=== PATIENT | male | born 1950 | race Caucasian/White ===

== ENCOUNTER 2017-06-20 19:49 | Observation (INO) | payer MEDICARE ==
[~2017-06-20] VITALS: Ht 177.8 cm; Wt 95.0 kg
[~2017-06-20 19:49] MED LIST: CIPR-231 PO; CLAR10T PO; DILT240T6 PO; METR500T PO; OXYC1TAB24 PO; PRI20 PO; TAM4 PO
[2017-06-20 20:22] VITALS: BP 145/81; PULSE 60; RESP 16; O2SAT 97
[2017-06-20 20:51] LABS: BASOPHILS % (AUTO) 0.3 % (0-3); EOSINOPHILS % (AUTO) 1.8 % (0-5); MONOCYTES % (AUTO) 8.8 % (4-12); Mean Corpuscular Hemoglobin 29.5 pg (27.0-35.0); Mean Corpuscular Volume 90.5 fL (81-100); NEUTROPHILS % (AUTO) 68.4 % (40-74); Platelet Count 164 bil/L (150-400)
[2017-06-20 21:21] LABS: Magnesium 1.8 mg/dL (1.6-2.6)
[2017-06-20 21:43] LABS: APPEARANCE,URINE CLEAR (CLEAR,HAZY); COLOR,URINE YELLOW (YELLOW); OCCULT BLOOD,URINE TRACE (NEGATIVE)
[2017-06-20 21:44] LABS: UROBILINOGEN,URINE NORMAL (NORMAL)
--- NOTE | 2017-06-20 22:38 | ED.REPORT ---
HPI-Abd Pain M 40 and Over Date of Service Jun 20, 2017 ED Provider: Javon Miller DO Pt is a 67 year old male with a history of diverticulitis, A-fib on Warfarin and Diltiazem, GERD, and type II DM who presents to the ED complaining of left- sided abdominal pain onset this morning. He c/o associated diarrhea. He denies any other symptoms. The pt presented to with his symptoms and he was referred to the ED for further evaluation. Nursing Notes Stated Complaint: ABDOMINAL PAIN/SENT FROM URGENT CARE Chief Complaint: Male Abdominal Pain Nursing Notes Reviewed: Yes Allergies: Coded Allergies: Penicillins (Verified Allergy, Unknown, 02/11/14) Scheduled Ciprofloxacin (Cipro) 500 Mg Tablet 500 MG PO BID Diltiazem (Diltiazem) 120 Mg Tablet 240 MG PO DAILY Loratadine (Loratadine) 10 Mg Capsule 10 MG PO DAILY Metronidazole (Flagyl) 500 Mg Tablet 500 MG PO Q8H Omeprazole (Omeprazole) 20 Mg Capsule.dr 20 MG PO DAILY Tamsulosin (Flomax) 0.4 Mg Capsule 0.4 MG PO HS Warfarin Sodium (Coumadin) 5 Mg Tablet 5 MG PO DAILY@17 Scheduled PRN oxyCODONE-Acetaminophen 5-325 mg (oxyCODONE-Acetaminophen 5-325 mg) 1 Each Tablet 1-2 TAB PO Q6H PRN PRN For Pain General Time Seen by MD: 22:29 Chief Complaint Abdominal pain Hx Obtained From: Patient Arrived By: Walk-in Sudden in Onset?: No Onset Occurred: 5 - 8 hours ago Symptom Duration: Since onset Location: : LLQ: LUQ Quality: Painful Radiation: : Does not radiate Severity: Current: Moderate Severity: Maximum: Moderate Recent Healthcare: Recent doctor visit Similar Sx Previous: No Past Medical History Past Medical History Atrial fibrillation BPH Colon polyps Diabetes type 2 Reports: GERD Past Surgical History Cholecystectomy Appendectomy Knee surgery Polypectomy Smoking History Unknown if Ever Smoker Social History Alcohol Use: Denies alcohol use Drug Use: Denies drug use Other Social History: Good social support Ambulatory Status Independent Review of Systems Constitutional: Denies: Fever Respiratory: Denies: Non-productive cough, Shortness of breath GI: Reports: Abdominal pain, Diarrhea, Denies: Constipation Complete sys rev & neg: except as marked. Physical Exam Initial Vital Signs Vital Signs (First) Date Time Temp Pulse Resp B/P Pulse Ox O2 Delivery O2 Flow Rate FiO2 06/20/17 20:22 36.8 60 16 145/81 97 Room Air Initial VS: Reviewed Head / Eyes: Atraumatic, Normocephalic Neck: Supple, Full range of motion Extremities: Vascular intact, Neuro intact Skin: Warm, Dry, No cyanosis Neurologic: Alert, Oriented, Nonfocal Psychiatric: Mood/affect normal, Behavior normal General/Constitutional: Awake, Alert Respiratory / Chest: Atraumatic, Breath sounds NL, Breath sounds = bilat Cardiovascular: Heart rate NL, Regular rhythm, Heart sounds NL Abdomen: Atraumatic, Soft Moderate left sided tenderness Back: Atraumatic, Full range of motion Interpretation & Diagnostics Lab Results Interpretation Result Diagram: 06/21/17 0612 06/20/170 Test 06/20/17 20:40 06/20/17 21:07 06/20/17 21:12 White Blood Count 6.8th/mm3 (3.8-10.1) Red Blood Count 4.41mil/mm3 (4.40-5.80) Mean Corpuscular Volume 90.5fL (81-100) Mean Corpuscular Hemoglobin 29.5pg (27.0-35.0) Mean Corpuscular Hemoglobin Concent 32.6% (32.0-37.0) Red Cell Distribution Width 13.2% (12.3-15.4) Platelet Count 164bil/L (150-400) Neutrophils (%) (Auto) 68.4% (40-74) Lymphocytes (%) (Auto) 20.6% (14-46) Monocytes (%) (Auto) 8.8% (4-12) Eosinophils (%) (Auto) 1.8% (0-5) Basophils (%) (Auto) 0.3% (0-3) Sodium Level 139mEq/L (134-144) Potassium Level 4.5mEq/L (3.5-5.2) Chloride Level 102mEq/L (97-108) Carbon Dioxide Level 26mmol/L (18-29) Blood Urea Nitrogen 15mg/dL (8-27) Creatinine 0.83mg/dL (0.76-1.27) Estimat Glomerular Filtration Rate 98mL/min (>59) Glucose Level 109mg/dL (60-99) Calcium Level 9.4mg/dL (8.5-10.1) Magnesium Level 1.8mg/dL (1.6-2.6) Total Bilirubin 0.3mg/dL (0.0-1.2) Aspartate Amino Transf (AST/SGOT) 19U/L (0-50) Alanine Aminotransferase (ALT/SGPT) 20U/L (0-44) Alkaline Phosphatase 90U/L (25-160) Total Protein 7.5g/dL (6.4-8.4) Albumin 4.5g/dL (3.4-5.0) Lipase 32U/L (13-60) Hold [place] Top Tube Received (Received) Urine Color Yellow (YELLOW) Urine Appearance Clear (CLEAR,HAZY) Urine pH 6.0 (5.0-8.0) Urine Specific [place] 1.015 (1.003-1.035) Urine Protein Negativemg/dL (NEG,TRACE) Urine Glucose (UA) Negativemg/dL (NEGATIVE) Urine Ketones Negativemg/dL (NEGATIVE) Urine Occult Blood Trace (NEGATIVE) Urine Nitrite Negative (NEGATIVE) Urine Bilirubin Negative (NEGATIVE) Urine Urobilinogen Normalmg/dL (NORMAL) Urine Leukocyte Esterase Negative (NEGATIVE) Urine RBC 0-2/hpf (0-2) Urine WBC 0-5/hpf (0-5) Urine Epithelial Cells None/hpf (NONE-MOD) Urine Crystals None seen (NONE SEEN) Urine Bacteria None/hpf (NONE-FEW) Urine Hyaline Casts None/lpf (NONE) Urine Granular Casts None seen (NONE SEEN) Urine Waxy Casts None seen (NONE SEEN) Urine Red Blood Cell Casts None seen (NONE SEEN) Urine White Blood Cell Casts None seen (NONE SEEN) Urine Mucus None seen (None Seen) Urine Trichomonas None seen (NONE SEEN) Urine Yeast None (NONE SEEN) Urinalysis Comment None Urine Culture Reflexed Not indicated Hold Purple Top Tube Received (Received) Hold Blue Top Tube Received (Received) Hold [place] Top Tube Received (Received) CT Abd / Pelvis Interpretation IMPRESSION: Mild signmoid diverticulitis. No gross free air or loculated fluid collection/mature abscess. Other findings above. Please see final report for non-emergent incidental findings. Transmitted ot the ED at 00:22 by Tatiana Najera M.D. Study type: Abdominal CT IV contrast Interpretation / Wet Read by: Interpret - Radiologist Re-Eval/Medical Decision Source of Hx: Old records Time of Eval: 22:35 Re-Evaluation/Progress Note: Informed pt of potential diagnoses, as well as plan for CT and labs. All questions addressed. Time of Eval: 00:50 Re-Evaluation/Progress Note: Pt rechecked. Informed pt of CT results indicating diverticulitis. Informed pt of plan for admission. Pt understands and agrees with plan for admission. All questions addressed. Consultation : Referral / Consult Name: Wendy Holm DO Consulted With: Hospitalist Call Returned at: 01:47 Electric Organ Checker: Will see patient, Agrees with eval, Agrees with plan, Accepts admit Counseled Regarding: Diagnosis, Lab results, Need for admission Discharge & Departure Primary Impression: Sigmoid diverticulitis Disposition: ADMITTED TO HOSPITAL Vital Signs - All Vital Signs Date Time Temp Pulse Resp B/P Pulse Ox O2 Delivery O2 Flow Rate FiO2 06/21/17 01:56 63 17 122/67 96 Room Air 06/20/17 22:48 63 17 137/84 95 Room Air 06/20/17 20:22 36.8 60 16 145/81 97 Room Air )( All Prior VS Reviewed: Yes Condition: Stable Referrals: Gene Brown MD (PCP) CARDIOLOGY,YADIRA SALAZAR (Family) Scribe Attestation Portions of this note were transcribed by Julia Chamberlain. I, Dr. Miller personally performed the history, physical exam and medical decision-making; I reviewed and confirmed the accuracy of the information in the transcribed note. Signed by : Jonh Hernandez, 06/20/17. copies to: CARDIOLOGYYADIRA; Gene Brown MD, Todd P DO Jun 20, 2017 22:38 Julia Martino Jun 20, 2017 22:53 Date Time Temp Pulse Resp B/P Pulse Ox O2 Delivery O2 Flow Rate FiO2 06/20/17 22:48 63 17 137/84 95 Room Air 06/20/17 20:22 36.8 60 16 145/81 97 Room Air )( All Prior VS Reviewed: Yes Condition: Stable Referrals: Gene Brown MD (PCP) CARDIOLOGY,YADIRA SALAZAR (Family) Scribe Attestation Portions of this note were transcribed by Julia Chamberlain. I, Dr. Miller personally performed the history, physical exam and medical decision-making; I reviewed and confirmed the accuracy of the information in the transcribed note. Signed by : Jonh Hernandez, 06/20/17. copies to: CARDIOLOGY,[facility]; Gene Brown MD, Javon Shirley DO Jun 20, 2017 22:38 Julia Martino Jun 20, 2017 22:53
[2017-06-20] MEDS ORDERED: fentaNYL-PF 50 mCg/mL 2 mL Inj IVPUSH PRN (22:40)
[2017-06-20 22:48] VITALS: BP 137/84; PULSE 63; RESP 17; O2SAT 95
[2017-06-20 23:00] LABS: INR 2.25 ratio
[2017-06-20] MEDS ORDERED: metroNIDAZOLE Inj 500 MG in IV Premix 1 EACH IV ONE (23:55)
[2017-06-20] MEDS ORDERED: cefTRIAXone Inj 2,000 MG in Dextrose 5% Minibag Plus 50 ML IV ONE (23:55)
[2017-06-21] VITALS (8 sets, daily range): BP systolic 118–132; BP diastolic 67–74; PULSE 48–68; RESP 16–17; O2SAT 95–96
--- NOTE | 2017-06-21 01:50 | PCM.HPMED ---
Subjective Date of Service Jun 21, 2017 Primary Provider: Admitting Physician: Primary Care Physician: Gene Brown MD Attending Physician: Admit Status: From the Emergency Department Chief Complaint: abdominal pain History of Present Illness: 67yoM with past medical history of atrial fibrillation currently on warfarin, diverticulitis, BPH and GERD admitted with acute onset of abdominal pain and CT findings consistent with diverticulitis. Patient states that about 1 week ago he was outside working on his fence with subsequent abdominal pain. He didn't think much of this and considered a hernia for the etiology after seeing his massage therapist. This pain resolved but immediately prior to presentation patient began having 6-7/10 achy abdominal pain. He describes the pain as similar to the last time he had diverticulitis and also characterized as a bloating sensation worse with bending forward and improvement is seen when laying down. Patient denies nausea , vomiting, fevers, or chills. He does endorse a small amount of diarrhea with onset however without hematochezia or melena. Patient has had not recent ill contacts or changes in diet. Review of Systems: complete review of systems obtained. positive as per hpi otherwise negative. Allergies Coded Allergies: Penicillins (Verified Allergy, Unknown, 02/11/14) Home Medications Med rec to be completed. 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 Chest & Lungs: Clear to auscultation & percussion, No adventitious breath sounds, no crackles, no wheeze Cardiovascular: Normal S1, Normal S2, No Murmurs/Rubs/Gallops, Regular Rate/ Rhythm Pulses: Radial (present and equal), Dorsalis Pedi (present and equal) Abdomen: Soft,Tenderness in mid epigastric area with no guarding, Non-distended , Normoactive bowel tones. Musculoskeletal: Unremarkable. Normal range of motion, no swollen or erythematous joints Extremities: No edema, + cyanosis, no clubbing. Skin: No rashes. Warm and dry, no erythematous areas Neurological: Grossly neurologically intact, Normal Speech, Sensation Intact Lymphatic: Lymph nodes Cervical and Axillary not palpable. Lab and Diagnostics Result Diagram: 06/20/17203906/20/172039 X-Rays, CTs and MRIs CT abd / pelvis IMPRESSION: Mild signmoid diverticulitis. No gross free air or loculated fluid collection/mature abscess. Other findings above. Please see final report for non-emergent incidental findings. Assessment & Plan 67yoM with past medical history of atrial fibrillation currently on warfarin, diverticulitis, BPH and GERD admitted with acute onset of abdominal pain and CT findings consistent with diverticulitis. Patient is stable on admission with improved abdominal pain Diverticulitis, acute, POA -patient with h/o diverticulitis similar presenting symptoms -CT findings consistent with diverticulitis -PCN allergy, ceftriaxone / metronidazole started in ED, continue -mIVF, clear liquid diet, advance as tolerated Atrial fibrillation, chronic, POA -continue home diltiazem -continue warfarin (pharmacy to dose) BPH, chronic, POA -continue flomax when med rec complete GERD, chronic, POA -continue omeprazole 20mg daily Diabetes, chronic, POA -relatively new diagnosis -hold metformin while admitted Patient is admitted under observation status and will likely be admitted less than 2 midnights. Pain Evaluation: Adequate Pain Control GI Prophylaxis: Proton Pump Inhibitor (Patient takes this as an outpatient for GERD) VTE Prophylaxis: Theraputic Anticoag with Warfarin Resuscitation Status: CPR: Attempt Resuscitation Wendy Holm DO Jun 21, 2017 01:50
[2017-06-21] MEDS ORDERED: Alum-Mag Hydrox-Simeth 30 mL Suspension PO PRN (01:55)
[2017-06-21] MEDS ORDERED: Polyethylene Glycol (PEG) 17 Gm Powder PO PRN (01:55)
[2017-06-21] MEDS ORDERED: Ondansetron 2 mg/mL 2 mL Inj IVPUSH PRN (01:55)
[2017-06-21] MEDS: 0.9% Sodium Chloride 1,000 ML IV SCH ×2 (03:46→09:13)
[2017-06-21] MEDS ORDERED: DILT120T3 PO (04:37)
[2017-06-21] MEDS ORDERED: LORA10CA9 PO (04:38)
[2017-06-21] MEDS ORDERED: TAMS0.4C98 PO (04:38)
[2017-06-21] MEDS ORDERED: OMEP20CA11 PO (04:38)
[2017-06-21 07:21] LABS: INR 2.15 ratio
--- NOTE | 2017-06-21 08:12 | DRSVH ---
PROCEDURE: CT ABDOMEN AND PELVIS WITH CONTRAST ([id number]) INDICATIONS: LLQ pain TECHNIQUE: After the administration of intravenous contrast, 5 mm thick sections acquired from the diaphragm to the symphysis. 5 mm coronal and sagittal reformats were acquired. For radiation dose reduction, the following was used: automated exposure control, adjustment of mA and/or kV according to patient siz e. COMPARISON: [facility], CT, CT ABD PELVIS W CON, 08/31/2016, 4:54. FINDINGS: Image quality: Excellent. ABDOMEN: Lung bases: Mild scarring within the left lung base, as before. Lung bases are otherwise clear. Hea rt size is normal. Solid organs: Liver and spleen are normal in size and enhancement. Gallbladder demonstrates multipl e calculi within its lumen. Biliary system is non dilated. Pancreas enhances normally. No adrenal nodules. Kidneys demonstrate normal size and enhancement, without hydronephrosis. Peritoneum and bowel: A small hiatal hernia is present. Stomach and small bowel are within normal mehta its. Appendectomy clips are present. Colon is nondistended. Diverticulosis of the transverse, descend ing, and sigmoid colon is present. There is mild thickening of the mid sigmoid colon within the left hemipelvis. Moderate surrounding fat stranding is present. No free fluid or air. Nodes and vessels: No retroperitoneal or mesenteric adenopathy by size criteria. Aorta and inferior vena cava are normal in size. Miscellaneous: No ventral hernias. PELVIS: Genitourinary: Mild thickening of the left superior urinary bladder wall adjacent to the thickened an d inflamed sigmoid colon. Miscellaneous: No inguinal hernias or adenopathy. Bones: No suspicious bony lesions. No vertebral body compression fractures. IMPRESSION: 1. Diverticulitis of the sigmoid colon. 2. Mild thickening of the left superior urinary bladder adjacent to the inflamed colon. Close clinica l followup is recommended to exclude developing colovesical fistula. 3. Cholelithiasis. 4. Small hiatal hernia. 5. Concordant with preliminary interpretation. Dictated by: Rylan Romo M.D. on 06/21/2017 at 8:06 Approved by: Rylan Romo M.D. on 06/21/2017 at 8:09
[2017-06-21] MEDS ORDERED: Diltiazem CD 240 mg ER24 Capsule PO SCH (08:30)
[2017-06-21] MEDS ORDERED: metroNIDAZOLE Inj 1,000 MG in IV Premix 1 EACH IV SCH (08:30)
[2017-06-21] MEDS ORDERED: Pantoprazole 20 mg ER24 Tablet PO SCH (08:30)
[2017-06-21] MEDS ORDERED: CIPR-231 PO (12:28)
[2017-06-21] MEDS ORDERED: METR500T PO (12:28)
[2017-06-21] MEDS ORDERED: WARF5TAB PO (12:29)
--- NOTE | 2017-06-21 12:31 | PCM.DIMED ---
Discharge Instructions Date of Service Jun 21, 2017 Dates of Hospitalization Jun 21, 2017 at 02:07 Discharge Diagnosis Discharge Diagnosis Diverticulitis Diet Discharge Diet: Other (High fiber diet) Activity Discharge Activity: No restrictions Call your provider Call your provider for: Excessive diarrhea Patient Instructions Follow-up with PCP in: 1 week (To discuss the CT image findings. ) Additional Information CT findings 1. Diverticulitis of the sigmoid colon. 2. Mild thickening of the left superior urinary bladder adjacent to the inflamed colon. Close clinical followup is recommended to exclude developing colovesical fistula. 3. Cholelithiasis. 4. Small hiatal hernia. Gus Brenner MD Jun 21, 2017 12:31
--- NOTE | 2017-06-21 17:25 | PCM.DC.MED ---
Discharge Summary Date of Service Jun 21, 2017 Dates of Hospitalization Date of Hospital Admission Jun 21, 2017 at 02:07 Date of Discharge: Jun 21, 2017 Providers: Admitting Physician: Wendy Holm DO Primary Care Physician: Gene Brown MD Attending Physician: Oziel Moraes MD Diagnosis at Time of Discharge Diagnosis at Time of Discharge Diverticulitis Procedures XRay, CTs & MRIs CT abd / pelvis IMPRESSION: Mild signmoid diverticulitis. No gross free air or loculated fluid collection/mature abscess. Other findings above. Please see final report for non-emergent incidental findings. Brief History 67yoM with past medical history of atrial fibrillation currently on warfarin, diverticulitis, BPH and GERD admitted with acute onset of abdominal pain and CT findings consistent with diverticulitis. Patient states that about 1 week ago he was outside working on his fence with subsequent abdominal pain. He didn't think much of this and considered a hernia for the etiology after seeing his massage therapist. This pain resolved but immediately prior to presentation patient began having 6-7/10 achy abdominal pain. He describes the pain as similar to the last time he had diverticulitis and also characterized as a bloating sensation worse with bending forward and improvement is seen when laying down. Patient denies nausea , vomiting, fevers, or chills. He does endorse a small amount of diarrhea with onset however without hematochezia or melena. Patient has had not recent ill contacts or changes in diet. Hospital Course 67yoM with past medical history of atrial fibrillation currently on warfarin, diverticulitis, BPH and GERD admitted with acute onset of abdominal pain and CT findings consistent with diverticulitis. Patient is stable on admission with improved abdominal pain Diverticulitis, acute, POA, resolving -patient with h/o diverticulitis similar presenting symptoms -CT findings consistent with diverticulitis -PCN allergy, ceftriaxone / metronidazole started in ED, to continue cipro and flagyl at dc - outpatient follow up Urinary bladder thickening on CT - no signs of fistula, no recurrent UTIs or fecal material in bladder - outpatient follow up - patient has had cystoscopy in the past Atrial fibrillation, chronic, POA -continue home diltiazem -continue warfarin (pharmacy to dose) BPH, chronic, POA -continue flomax when med rec complete GERD, chronic, POA -continue omeprazole 20mg daily Diabetes, chronic, POA - continue home metformin Exam Vital Signs (Last) Date Time Temp Pulse Resp B/P Pulse Ox O2 Delivery O2 Flow Rate FiO2 06/21/17 17:08 37.4 68 16 129/74 96 Room Air Test 06/20/17 20:40 06/20/17 21:07 06/20/17 21:12 06/21/17 06:12 White Blood Count 6.8th/mm3 (3.8-10.1) Red Blood Count 4.41mil/mm3 (4.40-5.80) Mean Corpuscular Volume 90.5fL (81-100) Mean Corpuscular Hemoglobin 29.5pg (27.0-35.0) Mean Corpuscular Hemoglobin Concent 32.6% (32.0-37.0) Red Cell Distribution Width 13.2% (12.3-15.4) Platelet Count 164bil/L (150-400) Neutrophils (%) (Auto) 68.4% (40-74) Lymphocytes (%) (Auto) 20.6% (14-46) Monocytes (%) (Auto) 8.8% (4-12) Eosinophils (%) (Auto) 1.8% (0-5) Basophils (%) (Auto) 0.3% (0-3) Sodium Level 139mEq/L (134-144) Potassium Level 4.5mEq/L (3.5-5.2) Chloride Level 102mEq/L (97-108) Carbon Dioxide Level 26mmol/L (18-29) Blood Urea Nitrogen 15mg/dL (8-27) Creatinine 0.83mg/dL (0.76-1.27) Estimat Glomerular Filtration Rate 98mL/min (>59) Glucose Level 109mg/dL (60-99) Calcium Level 9.4mg/dL (8.5-10.1) Magnesium Level 1.8mg/dL (1.6-2.6) Total Bilirubin 0.3mg/dL (0.0-1.2) Aspartate Amino Transf (AST/SGOT) 19U/L (0-50) Alanine Aminotransferase (ALT/SGPT) 20U/L (0-44) Alkaline Phosphatase 90U/L (25-160) Total Protein 7.5g/dL (6.4-8.4) Albumin 4.5g/dL (3.4-5.0) Lipase 32U/L (13-60) Hold [place] Top Tube Received (Received) Urine Color Yellow (YELLOW) Urine Appearance Clear (CLEAR,HAZY) Urine pH 6.0 (5.0-8.0) Urine Specific [place] 1.015 (1.003-1.035) Urine Protein Negativemg/dL (NEG,TRACE) Urine Glucose (UA) Negativemg/dL (NEGATIVE) Urine Ketones Negativemg/dL (NEGATIVE) Urine Occult Blood Trace (NEGATIVE) Urine Nitrite Negative (NEGATIVE) Urine Bilirubin Negative (NEGATIVE) Urine Urobilinogen Normalmg/dL (NORMAL) Urine Leukocyte Esterase Negative (NEGATIVE) Urine RBC 0-2/hpf (0-2) Urine WBC 0-5/hpf (0-5) Urine Epithelial Cells None/hpf (NONE-MOD) Urine Crystals None seen (NONE SEEN) Urine Bacteria None/hpf (NONE-FEW) Urine Hyaline Casts None/lpf (NONE) Urine Granular Casts None seen (NONE SEEN) Urine Waxy Casts None seen (NONE SEEN) Urine Red Blood Cell Casts None seen (NONE SEEN) Urine White Blood Cell Casts None seen (NONE SEEN) Urine Mucus None seen (None Seen) Urine Trichomonas None seen (NONE SEEN) Urine Yeast None (NONE SEEN) Urinalysis Comment None Urine Culture Reflexed Not indicated Hold Purple Top Tube Received (Received) Hold Blue Top Tube Received (Received) Hold [place] Top Tube Received (Received) Hemoglobin 12.0g/dL (13.8-17.2) Hematocrit 37.3% (41.0-50.0) Prothrombin Time 23.4sec (8.1-12.5) Prothromb Time International Ratio 2.15ratio Discharge Medications Discharge Medications Ciprofloxacin (Cipro) 500 Mg Tablet 500 MG PO BID Prescribed by: OZIEL MORAES MD Diltiazem (Diltiazem) 120 Mg Tablet 240 MG PO DAILY (Reported) Loratadine (Loratadine) 10 Mg Capsule 10 MG PO DAILY (Reported) Metronidazole (Flagyl) 500 Mg Tablet 500 MG PO Q8H Prescribed by: OZIEL MORAES MD Omeprazole (Omeprazole) 20 Mg Capsule.dr 20 MG PO DAILY (Reported) Tamsulosin (Flomax) 0.4 Mg Capsule 0.4 MG PO HS (Reported) Warfarin Sodium (Coumadin) 5 Mg Tablet 5 MG PO DAILY@17 Prescribed by: OZIEL MORAES MD As needed oxyCODONE-Acetaminophen 5-325 mg (oxyCODONE-Acetaminophen 5-325 mg) 1 Each Tablet 1-2 TAB PO Q6H PRN PRN For Pain Prescribed by: NABILA RUCKER MD Followup Plan Discharge Diet: Other (High fiber diet) Discharge Activity: No restrictions Follow-up with PCP in: 1 week (To discuss the CT image findings. ) Time spent 35 mins Oziel Moraes MD Jun 21, 2017 17:25
[2017-06-21] MEDS ORDERED: cefTRIAXone Inj 2,000 MG in Dextrose 5% Minibag Plus 50 ML IV SCH (18:30)
== END 2017-06-21 17:15 | disposition home or self-care (01) ==
LOC: SED 19:49 → MOC 06-21 02:07
PROVIDERS: ADMIT Internal Medicine; ATTEND Internal Medicine
DX: K57.32 Diverticulitis of large intestine without perforation or abscess without bleeding (principal); N32.89 Other specified disorders of bladder; I48.91 Unspecified atrial fibrillation; E11.9 Type 2 diabetes mellitus without complications; K21.9 Gastro-esophageal reflux disease without esophagitis; N40.0 Benign prostatic hyperplasia without lower urinary tract symptoms; Z86.010 Personal history of colon polyps; Z79.01 Long term (current) use of anticoagulants; Z88.0 Allergy status to penicillin; Z79.84 Long term (current) use of oral hypoglycemic drugs
CPT/HCPCS: 36415; 74177; 80053; 81000; 83690; 83735; 85014; 85018; 85025; 85610; 96365; 96367; 96375; 99285; G0378; J0696; J3010; J3490; J7030; Q9967